=== PATIENT | male | born 1980 | race Caucasian/White ===

== ENCOUNTER 2025-03-22 17:43 | Emergency (ER) | payer SELFPAY ==
[2025-03-22 17:45] VITALS: BP 132/91; BMI 28.4
--- NOTE | 2025-03-22 19:08 | ED.GENMED ---
History of Present Illness
General
Chief Complaint: Crisis Evaluation
Source: patient and spouse
Exam Limitations: none
Time Seen by Provider: 03/22/25 18:38
History of Present Illness
History of Present Illness:
45yoM with a history of depression presenting with police for psychiatric evaluation after his filed a 302 today. The 302 paperwork documents that he has been talking a lot about suicide and mentions that he has been very volatile at home. On
my assessment, patient is denying any suicidal ideations or plans. He does admit to being under a tremendous amount of stress recently. The mother of his children this year and a heroin overdose. 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
and new management has been pressuring him to lie. He quit his job and he went to the office today to clean out his desk. He admits to drinking alcohol heavily at times but denies any daily consumption. No history of withdrawal. He recently
discontinued Zoloft because it does not seem to help him. He takes Klonopin PRN and is scheduled to see a new psychiatrist next week.
Phy Exam
General Physical Exam
General Presentation: well appearing and no apparent distress
General Skin: warm and dry
General Habitus: normal
General Mental: alert
ENT Exam
ENT Exam: normocephalic
Pulmonary Exam
Pulmonary Exam: no respiratory distress
Neurological Exam
Neurological Exam: alert
Cast[place] Coma Scale
Eye Opening: Spontaneous
Verbal Response: Oriented
Motor Response: Obeys Commands
GCS Total Score: 15
Skin Exam
Skin Exam: normal color and warm/dry
Psychiatric Exam
Psychiatric Exam: agitated and other (Patient agitated on exam and is arguing with . Cooperative with questioning. No SI/HI.)
Course
Orders/Labs/Results
Orders:
Orders
03/22/25 18:11
Crisis Consult Urgent
Reason for Consult: depressed sts is under a lot of stress sts not SI
03/22/25 19:16
1:1 Observation - Suicide/ Violent Behavior As Directed
03/22/25 22:25
Urine Drug Abuse Screen Urgent
Date Specimen was Collected: 03/22/25
Time Specimen was Collected: 19:23
Vital Signs
Initial and Last Documented VS:
Initial Vital Signs
Temp Pulse Resp BP Pulse Ox
98.6 F 98 16 132/91 97
03/22/25 17:45 03/22/25 17:45 03/22/25 17:45 03/22/25 17:45 03/22/25 17:45
Last Documented Vital Signs
Temp Pulse Resp BP Pulse Ox
98.6 F 98 16 132/91 97
03/22/25 17:45 03/22/25 17:45 03/22/25 17:45 03/22/25 17:45 03/22/25 19:10
MDM/Problems Addressed
Differential Diagnosis Includes:
45yoM here with police after petitioned 302. 302 paperwork documents that he has made threats about suicide. He denies SI on my exam but has been under a lot of stress. Patient agitated on exam and is arguing with . VSS.
Patient evaluated by crisis team and telepsych. 302 upheld by psychiatrist. Patient medically cleared for inpatient psychiatric treatment. He was ultimately accepted at [facility] and left ED in stable condition.
*Pulse Oximetry
SaO2: 97
Oxygen Mode of Delivery: Room air
Patient hypoxic: no
*Critical Care Note
Total Time (30-74mins, 75-104mins- exclusive of procedures): Not Applicable
ED Attending Note
-
Portions of this chart may have been created with voice recognition software.� Occasional wrong word or��sound alike� substitutions may have occurred due to the inherent limitations of voice recognition software.
Discharge Plan
Departure
Patient Disposition: Psych Facility
Date of Disposition: 03/22/25
Time of Disposition: 20:45
Discharge Problem:
Depression
Referrals:
UNKNOWN - PT DOES,NOT KNOW [Family Provider]
Interventions
Interventions:
*Risk Screen - Suicide Last Done: 03/22/25 17:45
*General Assessment Last Done: 03/22/25 17:45
*Neglect/Abuse Screening Last Done: 03/22/25 17:45
*ED- Fall Risk Assessment Last Done: 03/22/25 17:45
*ED COVID-19 Vaccine History Last Done: 03/22/25 17:45
*ED Influenza Vaccine History Last Done: 03/22/25 17:45
*Nursing Disposition Last Done: 03/22/25 22:46
ED-Psychological Assessment Last Done: 03/22/25 18:30
Discharge Date and Time
Discharge Date/Time: 03/22/25 22:46
Print Language: IRISH
== END 2025-03-22 22:46 ==
LOC: EMR 17:43
PROVIDERS: EMERGENCY PHYSICIAN Emergency Medicine
DX: F32.A Depression, unspecified (principal)
CPT/HCPCS: 99285